=== PATIENT | female | born 1965 | race Caucasian/White ===

== ENCOUNTER 2022-11-14 18:45 | Observation (INO) ==
--- NOTE | 2022-11-14 19:14 | ED.PDOC ---
General ED Provider: Dr. ADAN RONDON Chief Complaint: Shortness of Air Stated Complaint: im tying to get some air and my chst feels funny Time Seen by Provider: 11/14/22 19:08 Mode of Arrival: Walk-In Information Source: Patient Exam Limitations: No limitations Primary Care Provider: FARHANA SANDOVAL MD Nursing and Triage Documentation Reviewed and Agree: Yes Does patient meet sepsis criteria?: No System Inflammatory Response Syndrome: Not Applicable Sepsis Protocol: For patient's 13 years and over: Temp is 96.8 and below OR 101 and greater Pulse >90 BPM Resp >20/minute Acutely Altered Mental Status Are patient's symptoms suggestive of a new infection, such as: -Pneumonia -Skin, Soft Tissue -Endocarditis -UTI -Bone, Joint Infection -Implantable Device -Acute Abdominal Infection -Wound Infection -Meningitis -Blood Stream Catheter Infection -Unknown Cardiovascular Complaint Exam Chest Pain Complaint/Exam Onset: Gradual Duration: 3 daysa Symptoms Are: Still present Timing: Intermittent Initial Severity: Mild Current Severity: Mild Location: Reports Discrete Pain Radiates: Reports Back Character: Reports Dull and Aching Aggravating: Reports None Alleviating: Reports Spontaneous resolution Associated Signs and Symptoms: Reports Short of air Related History: Reports Current ARBs AMI/ACS Risk Factors: Reports Hypertension Prior Care for this Complaint: No Recent Stress Test: No Recent Echo/LV Function: No JVD Present: No Subcutaneous Emphysema Present: No Diminshed Breath Sounds: No Reproducible Chest Wall Pain: No Bilateral Pulses Present: Yes Unequal Pulses Noted: No If Risk Factors for AMI/ACS Consider: EKG and Cardiac Enzymes Differential Diagnoses: Acute PA, ACS and Pulmonary Embolism Quality Indicator For Non-Traumatic Chest Pain/Syncope: EKG Performed Review of Systems Review Of Systems Constitutional: Reports No symptoms Eyes: Reports No symptoms Ears, Nose, Mouth, Throat: Reports No symptoms Respiratory: Reports Short of air Cardiac: Reports Chest pain GI: Reports No symptoms : Reports No symptoms Musculoskeletal: Reports No symptoms Skin: Reports No symptoms Neurological: Reports No symptoms Endocrine: Reports No symptoms Hematologic/Lymphatic: Reports No symptoms All Other Systems: Reviewed and Negative Physical Exam Physical Exam Appearance: Reports Well-appearing Ill-appearing: None Pain Distress: Mild Eyes: Reports JAIRO, EOMI and Conjunctiva clear ENT: Reports Ears normal, Nose normal and Oropharynx normal Neck: Supple Respiratory: Reports Airway patent, Breath sounds clear, Breath sounds equal and Breath sounds diminished Cardiovascular: Reports RRR, Pulses normal, No rub and No murmur GI/: Reports Soft, Nontender, No masses and Bowel sounds normal Musculoskeletal: Reports Normal strength, ROM intact and No edema Skin: Reports Warm, Dry and Normal color Neurological: Reports Sensation intact, Motor intact, Reflexes intact, Cranial nerves intact, Alert and Oriented Psychiatric: Reports Affect appropriate and Mood appropriate Interpretation Radiology Interpretation Radiology Interpretation By: Radiologist Radiology Results: Positive Exam Interpreted: CT Scan Xray Comments: cardiolomegaly EKG Interpretation Time of EKG #1: 21:56 Rate: Normal Rhythm: Sinus Ectopy: None [place]: NL ST Segment: Normal Interpretation: nsr Physician Notification Case Discussed Physician Notified: dr sandoval Time of Notification: 21:57 Critical Care Note Critical Care Note Total Critical Care Time (mins): 0 Course Course Hematology/Chemistry: 11/14/22 19:19 11/14/22 19:19 Orders, Labs, Meds: Lab Review 11/14/22 11/14/22 11/14/22 19:00 19:00 19:19 WBC 7.35 RBC 4.43 Hgb 12.0 Hct 37.3 MCV 84.2 MCH 27.1 MCHC 32.2 RDW Coeff of Chente 15.7 H Plt Count 280 Immature Gran % (Auto) 0.3 Neut % (Auto) 66.8 Lymph % (Auto) 24.6 [place] % (Auto) 6.0 Eos % (Auto) 1.8 Baso % (Auto) 0.5 Neut # (Auto) 4.9 Lymph # (Auto) 1.8 [place] # (Auto) 0.4 Eos # (Auto) 0.1 Baso # (Auto) 0.0 Immature Gran # (Auto) 0.0 Sodium Potassium Chloride Carbon Dioxide Anion Gap BUN Creatinine Estimated GFR (MDRD) BUN/Creatinine Ratio Glucose Calcium Total Bilirubin AST ALT Alkaline Phosphatase Troponin I NT-Pro-B Natriuret Pep Total Protein Albumin Globulin Albumin/Globulin Ratio Lipase Influ A Molecular Assay Negative by naat Influ B Molecular Assay Negative by naat SARS CoV-2 RNA Rapid TRAE Negative 11/14/22 19:19 WBC RBC Hgb Hct MCV MCH MCHC RDW Coeff of Chente Plt Count Immature Gran % (Auto) Neut % (Auto) Lymph % (Auto) [place] % (Auto) Eos % (Auto) Baso % (Auto) Neut # (Auto) Lymph # (Auto) [place] # (Auto) Eos # (Auto) Baso # (Auto) Immature Gran # (Auto) Sodium 141.5 Potassium 3.65 Chloride 105.5 Carbon Dioxide 29.7 Anion Gap 9.95 BUN 13.0 Creatinine 0.66 Estimated GFR (MDRD) 93.00 BUN/Creatinine Ratio 19.69 Glucose 100.4 Calcium 9.38 Total Bilirubin 0.41 AST 28.3 ALT 26.6 Alkaline Phosphatase 93.1 Troponin I < 0.012 NT-Pro-B Natriuret Pep 71.100 Total Protein 7.91 Albumin 4.56 Globulin 3.35 Albumin/Globulin Ratio 1.36 Lipase 40.0 Influ A Molecular Assay Influ B Molecular Assay SARS CoV-2 RNA Rapid TRAE Orders Category Date Time Status EKG-(ED ONLY) Stat CARDIO 11/14/22 19:05 Completed EKG-(ED ONLY) Stat CARDIO 11/14/22 21:43 Ordered NPO REMINDER: IMAGING ONCE CARE 11/14/22 19:06 Completed ED EMBALMER/FUNERAL DIRECTOR APPLIED .ONCE EMERGENCY 11/14/22 19:05 Active ED IV/MEDIPORT/POWERPORT .ONCE EMERGENCY 11/14/22 19:05 Active CBC W/ AUTO DIFF Stat LAB 11/14/22 19:19 Completed COMPREHENSIVE METABOLIC PANEL Stat LAB 11/14/22 19:19 Completed FLU A & B MOLECULAR [FLU A/B MOLECULAR] Stat LAB 11/14/22 19:00 Completed LIPASE Stat LAB 11/14/22 19:19 Completed NT-PROBNP Stat LAB 11/14/22 19:19 Completed SARS COV-2 RNA RAPID TRAE Stat LAB 11/14/22 19:00 Completed TROPONIN I Stat LAB 11/14/22 19:19 Completed 0.9 % Sodium Chloride [Saline Flush] MEDS 11/14/22 19:05 Active 1 syr IVF PRN PRN CT CHEST PE PROTOCOL Stat RADS 11/14/22 19:05 Completed Medications Generic Name Dose Route Start Last Admin Trade Name Freq PRN Reason Stop Dose Admin Sodium Chloride 1 syr 11/14/22 19:05 0.9% Sodium Chloride 10 Ml Disp.Syrin IVF PRN PRN To flush IV Vital Signs: Temp Pulse Resp BP Pulse Ox 11/14/22 18:46 97.8 F 88 18 162/98 H 98 SANTINO Risk Score SANTINO Risk Score: Risk Score Odds of by 30D 0 0.1 (0.1-0.2) 1 0.3 (0.2-0.3) 2 0.4 (0.3-0.5) 3 0.7 (0.6-0.9) 4 1.2 (1.0-1.5) 5 2.2 (1.9-2.6) 6 3.0 (2.5-3.6) 7 4.8 (3.8-6.1) Discharge Plan Discharge Patient Disposition: ADMITTED INPATIENT Discharge Problem: Chest pain Prescriptions: No Action alprazolam 0.25 mg tablet 0.25 mg PO BEDTIME pantoprazole 40 mg tablet,delayed release (DR/EC) 40 mg PO DAILY fluticasone propionate 50 mcg/actuation spray,suspension 1 spray INTRANASAL DAILY rosuvastatin 10 mg tablet 10 mg PO BEDTIME nebivolol 10 mg tablet 10 mg PO DAILY ED Provider: ADAN FAIRBANKS Condition: Good Physician Progress Note: []
[2022-11-14 19:29] LABS: BASOPHILS % (AUTO) 0.5 % (0.0-3.0); EOSINOPHILS # (AUTO) 0.1 K/ul (0.0-0.7); EOSINOPHILS % (AUTO) 1.8 % (0.0-7.0); HEMATOCRIT 37.3 % (37.0-47.0); IMMATURE GRANULOCYTE % (AUTO) 0.3 % (0.0-5.0); LYMPHOCYTES # (AUTO) 1.8 K/uL (0.60-3.4); LYMPHOCYTES % (AUTO) 24.6 (10.0-50.0); MEAN CORPUSCULAR HEMOGLOBIN 27.1 pg (27.0-31.0); MEAN CORPUSCULAR HGB CONC 32.2 (31.8-35.4); MEAN CORPUSCULAR VOLUME 84.2 fl (81.0-99.0); MONOCYTES # (AUTO) 0.4 K/uL (0.4-2.0); NEUTROPHILS # (AUTO) 4.9 K/ul (2.0-6.9); NEUTROPHILS % (AUTO) 66.8 % (42.2-75.2); PLATELET COUNT 280 10^3/uL (140-440); RDW COEFFICIENT OF VARIATION 15.7 % (11.6-14.8); RED BLOOD COUNT 4.43 10^6/ul (4.20-5.40); WHITE BLOOD COUNT 7.35 K/ul (4.6-10.2)
[2022-11-14 19:36] LABS: ALANINE AMINOTRANSFERASE 26.6 U/L (0-35); ALBUMIN 4.56 g/dL (3.5-5.0); ALKALINE PHOSPHATASE 93.1 U/L (38-126); ASPARTATE AMINO TRANSFERASE 28.3 U/L (14-36); BILIRUBIN,TOTAL 0.41 mg/dL (0.2-1.3); CALCIUM 9.38 mg/dL (8.4-10.2); CARBON DIOXIDE 29.7 mmol/L (22-30.0); CHLORIDE 105.5 mmol/L (98-107); CREATININE 0.66 mg/dL (0.60-1.30); GLUCOSE 100.4 mg/dL (74-106); POTASSIUM 3.65 mmol/L (3.5-5.1); SODIUM 141.5 mmol/L (134.5-145); TOTAL PROTEIN 7.91 g/dL (6.3-8.2)
[2022-11-14 19:40] LABS: MOLECULAR FLU A NEGATIVE BY NAAT (NEGATIVE); MOLECULAR FLU B NEGATIVE BY NAAT (NEGATIVE)
[2022-11-14 19:41] LABS: SARS COV-2 RNA RAPID NAAT NEGATIVE (NEGATIVE)
[2022-11-14 20:09] LABS: TROPONIN I < 0.012 ng/ml (0.0000-0.120)
--- NOTE | 2022-11-14 21:31 | CT ---
EXAM: Chest CTA with contrast 11/14/2022 HISTORY: Chest pain. Dyspnea. TECHNIQUE: Axial CT images were obtained through the chest with the administration of intravenous con trast in accordance with the PE protocol. Coronal, bilateral oblique and sagittal reformatted images were also submitted for interpretation. 3D/MIP images of the pulmonary vasculature were also genera tianna. COMPARISON: None. FINDINGS: The pulmonary arteries are normal in size. There are no filling defects in the pulmonary arteries to suggest pulmonary embolism. There is no evidence of right heart strain. Lower neck is within normal limits. Major airways are patent. No pneumothorax or pleural fluid. De pendent ground-glass opacities may atelectasis and/or pneumonitis. Moderate cardiomegaly. The thoracic aorta is normal in size. No lymphadenopathy. The visualized portions of the upper abdomen demonstrate possible hepatic steatosis. Correlation wit h LFTs recommended. Soft tissue structures are unremarkable. The bones are intact. IMPRESSION: - No acute pulmonary thromboembolism. - Moderate cardiomegaly. No pericardial effusion. - Dependent ground-glass opacities may atelectasis and/or pneumonitis. - Possible hepatic steatosis. Correlation with LFTs recommended. All CT scans are performed using dose optimization techniques as appropriate to the performed exam an d include at least one of the following: Automated exposure control, adjustment of the mA and/or kV according t o size, and the use of iterative reconstruction technique.
[2022-11-14] MEDS ORDERED: NITROSTAT SL PRN (21:58)
[2022-11-14] MEDS ORDERED: ATROPINE SULFATE PFS IVP PRN (21:58)
[2022-11-14] MEDS ORDERED: TYLENOL PO PRN (21:58)
[2022-11-14 22:16] LABS: BASOPHILS % (AUTO) 0.6 % (0.0-3.0); EOSINOPHILS # (AUTO) 0.1 K/ul (0.0-0.7); HEMATOCRIT 35.9 % (37.0-47.0); HEMOGLOBIN 11.8 g/dl (12.0-16.0); IMMATURE GRANULOCYTE % (AUTO) 0.3 % (0.0-5.0); LYMPHOCYTES # (AUTO) 1.8 K/uL (0.60-3.4); LYMPHOCYTES % (AUTO) 26.5 (10.0-50.0); MEAN CORPUSCULAR HEMOGLOBIN 27.4 pg (27.0-31.0); MEAN CORPUSCULAR HGB CONC 32.9 (31.8-35.4); MEAN CORPUSCULAR VOLUME 83.5 fl (81.0-99.0); MONOCYTES # (AUTO) 0.3 K/uL (0.4-2.0); MONOCYTES % (AUTO) 4.7 (0-10); NEUTROPHILS # (AUTO) 4.5 K/ul (2.0-6.9); NEUTROPHILS % (AUTO) 66.9 % (42.2-75.2); PLATELET COUNT 261 10^3/uL (140-440); RDW COEFFICIENT OF VARIATION 15.7 % (11.6-14.8); WHITE BLOOD COUNT 6.79 K/ul (4.6-10.2)
[2022-11-14 22:28] LABS: ALANINE AMINOTRANSFERASE 24.7 U/L (0-35); ALBUMIN 4.14 g/dL (3.5-5.0); ALKALINE PHOSPHATASE 88.4 U/L (38-126); ASPARTATE AMINO TRANSFERASE 25.4 U/L (14-36); BILIRUBIN,TOTAL 0.42 mg/dL (0.2-1.3); BLOOD UREA NITROGEN 11.9 mg/dL (7-17); CALCIUM 9.37 mg/dL (8.4-10.2); CARBON DIOXIDE 28.6 mmol/L (22-30.0); CHLORIDE 107.8 mmol/L (98-107); CREATINE KINASE 45.6 U/L (30-135); CREATININE 0.62 mg/dL (0.60-1.30); GLUCOSE 94.2 mg/dL (74-106); POTASSIUM 3.81 mmol/L (3.5-5.1); SODIUM 142.5 mmol/L (134.5-145); TOTAL PROTEIN 7.24 g/dL (6.3-8.2)
[2022-11-14 22:41] LABS: TROPONIN I < 0.012 ng/ml (0.0000-0.120)
[2022-11-14] MEDS ORDERED: LOVENOX SUBCUT STA (22:56)
[2022-11-14] MEDS ORDERED: ASPIRIN CHEWABLE PO STA (22:57)
[2022-11-14] MEDS: CRESTOR PO SCH (23:49)
[2022-11-15] MEDS: BYSTOLIC PO SCH ×2 (00:21→09:13)
[2022-11-15] MEDS: XANAX PO SCH ×2 (00:21→20:34)
[2022-11-15] MEDS: PROTONIX PO SCH ×3 (00:22→17:14)
[2022-11-15 06:46] LABS: CREATINE KINASE 38.5 U/L (30-135)
[2022-11-15 07:02] LABS: TROPONIN I < 0.012 ng/ml (0.0000-0.120)
[2022-11-15 08:47] LABS: CHOLESTEROL 124.1 mg/dL (0-200); HDL CHOLESTEROL 34.3 mg/dL (35-80); TRIGLYCERIDES 151.6 mg/dL (0-150)
[2022-11-15] MEDS ORDERED: BYSTOLIC PO SCH ×2 (09:00→21:00)
[2022-11-15] MEDS ORDERED: PROTONIX PO SCH ×2 (09:00→21:00)
[2022-11-15] MEDS ORDERED: ASPIRIN CHEWABLE PO SCH (09:00)
[2022-11-15] MEDS: FLONASE NAS SCH (09:14)
[2022-11-15 09:18] LABS: THYROID STIMULATING HORMONE 7.41 uIU/L (0.465-4.68)
[2022-11-15] MEDS: ZITHROMAX PO SCH (09:23)
[2022-11-15] MEDS: ROCEPHIN 1 GM/50 ML D5W 1 GM/50 ML BAG IV SCH (09:24)
[2022-11-15 09:53] LABS: BILIRUBIN,URINE Negative (NEGATIVE); CLARITY,URINE Clear (CLEAR); COLOR,URINE Yellow (YELLOW); GLUCOSE, URINE (UA) Negative (NEGATIVE); KETONES,URINE Negative (NEGATIVE); LEUKOCYTE ESTERASE ,URINE Negative (NEGATIVE); NITRITE,URINE Negative (NEGATIVE); PH,URINE 7.5 (5-9); PROTEIN,URINE Negative (NEGATIVE); URINE, BLOOD 2+ (NEGATIVE); UROBILINOGEN,URINE 0.2 (0.2)
[2022-11-15 09:59] LABS: SQUAMOUS EPITHELIAL CELL,UR 0-2 (0-5)
--- NOTE | 2022-11-15 10:05 | PCM.PROG ---
Attending Provider: ATTENDING PROVIDER: Dr. FARHANA NOEL MD This patient is seen with Sherrell Hussein, Nurse Practitioner. DATE OF SERVICE: 11/15/22 SUBJECTIVE: This 57 year old /WHITE F was hospitalized 11/14/22. The patient is resting comfortably. The patient reports she has been having intermittent chest pain for two days associated with shortness of breath with activity and at rest. History of dyslipidemia. The patient is overweight with positive family history of CAD. She reports pain has radiated through to back at times and has made her nauseated. No sweating. She denies any cough. CT of chest reported she had bilateral ground glass opacities. She has been afebrile. REVIEW OF SYSTEMS: CONSTITUTIONAL: Fatigue. No night sweats. No malaise, lethargy. No fever or chills. Activity intolerance. HEENT: Eyes: No visual changes. No eye pain. No eye discharge. ENT: No runny nose. No epistaxis. No sinus pain. No odynophagia. No congestion. RESPIRATORY: No cough, no congestion. No hemoptysis. Shortness of breath. CARDIOVASCULAR: Chest pain. No angina symptoms. No CHF symptoms. No palpitations. No orthopnea.. GASTROINTESTINAL: No abdominal pain. No nausea or vomiting. No diarrhea or constipation. No hematemesis. No hematochezia. GENITOURINARY: No urgency. No frequency. No dysuria. No hematuria. No obstructive symptoms. No discharge. No pain. No significant abnormal bleeding. MUSCULOSKELETAL: No musculoskeletal pain; no joint swelling. NEUROLOGICAL: Awake, alert, oriented to time, place and person. No headache. No neck pain. No syncope. No seizures. No dizziness. PSYCHIATRIC: Not anxious. No depression. No suicidal thoughts. No homicidal tho ughts. SKIN: No rash. No lesions. No wounds. ENDOCRINE: No unexplained weight loss. No weight gain. HEMATOLOGIC/LYMPHATIC: No anemia. No purpura. No petechiae. No prolonged or excessive bleeding. No palpable lymph nodes. PHYSICAL EXAMINATION: GENERAL: The patient is awake, alert and oriented, lying/sitting in bed in no distress. VITAL SIGNS: Temperature 97.7 F, Pulse 60, Respiratory Rate 16, BP 133/76, Pulse Ox 97% HEENT: Head normocephalic, atraumatic. Eyes: Extraocular muscles are intact. Pupils are equal, round and reactive to light and accommodation. Ears: No lesions. Nose appeared normal. Throat: No exudate or erythema. NECK: Supple. No JVD, no carotid bruit. No lymphadenopathy or thyromegaly. LUNGS: Diminished breath sounds. Rales at the bases. Percussion note normal. Chest symmetrical. HEART: S1, S2, no S3. No murmurs. No cyanosis or clubbing. No ascites. Pulses: Dorsalis pedis and posterior tibial pulses +1 to +2 both sides. ABDOMEN: Soft. Non-tender. Bowel sounds active. No CVA tenderness. No mass felt. EXTREMITIES: No edema. Full range of motion of all extremities, equal. NEUROLOGIC: No focal deficit. Cranial nerves II through XII are grossly intact. No headache. No double vision. SKIN: Not dry. Intact. Turgor-normal. LYMPHATIC: No palpable lymph nodes/no lymphedema. MUSCULOSKELETAL: Normal joints with no swelling. Muscle tone is normal. LAB REVIEW: 11/14/22 22:00 11/14/22 22:00 11/15/22 06:15: Total Creatine Kinase 38.5, Troponin I < 0.012 11/14/22 22:00: Sodium 142.5, Potassium 3.81, Chloride 107.8 H, Carbon Dioxide 28.6, Anion Gap 9.91, BUN 11.9, Creatinine 0.62, Estimated GFR (MDRD) 100.00, BUN/Creatinine Ratio 19.19, Glucose 94.2, Calcium 9.37, Total Bilirubin 0.42, AST 25.4, ALT 24.7, Alkaline Phosphatase 88.4, Total Creatine Kinase 45.6, Troponin I < 0.012, Total Protein 7.24, Albumin 4.14, Globulin 3.10, Albumin/Globulin Ratio 1.33 11/14/22 22:00: WBC 6.79, RBC 4.30, Hgb 11.8 L, Hct 35.9 L, MCV 83.5, MCH 27.4, MCHC 32.9, RDW Coeff of Chente 15.7 H, Plt Count 261, Immature Gran % (Auto) 0.3, Neut % (Auto) 66.9, Lymph % (Auto) 26.5, [place] % (Auto) 4.7, Eos % (Auto) 1.0, Baso % (Auto) 0.6, Neut # (Auto) 4.5, Lymph # (Auto) 1.8, [place] # (Auto) 0.3 L, Eos # (Auto) 0.1, Baso # (Auto) 0.0, Immature Gran # (Auto) 0.0 11/14/22 19:19: Sodium 141.5, Potassium 3.65, Chloride 105.5, Carbon Dioxide 29.7, Anion Gap 9.95, BUN 13.0, Creatinine 0.66, Estimated GFR (MDRD) 93.00, BUN/Creatinine Ratio 19.69, Glucose 100.4, Calcium 9.38, Total Bilirubin 0.41, AST 28.3, ALT 26.6, Alkaline Phosphatase 93.1, Troponin I < 0.012, NT-Pro-B Natriuret Pep 71.100, Total Protein 7.91, Albumin 4.56, Globulin 3.35, Albumin/Globulin Ratio 1.36, Lipase 40.0 11/14/22 19:19: WBC 7.35, RBC 4.43, Hgb 12.0, Hct 37.3, MCV 84.2, MCH 27.1, MCHC 32.2, RDW Coeff of Chente 15.7 H, Plt Count 280, Immature Gran % (Auto) 0.3, Neut % (Auto) 66.8, Lymph % (Auto) 24.6, [place] % (Auto) 6.0, Eos % (Auto) 1.8, Baso % (Auto) 0.5, Neut # (Auto) 4.9, Lymph # (Auto) 1.8, [place] # (Auto) 0.4, Eos # (Auto) 0.1, Baso # (Auto) 0.0, Immature Gran # (Auto) 0.0 11/14/22 19:00: Influ A Molecular Assay Negative by naat, Influ B Molecular Assay Negative by naat 11/14/22 19:00: SARS CoV-2 RNA Rapid TRAE Negative ASSESSMENT: Please see below. 1. Chest pain with bilateral acute pneumonitis. 2. Shortness of breath. 3. Dyslipidemia. 4. Family history of cardiovascular disease. 5. Obesity with BMI 30. 6. Hypertension. PLAN: 1. 2D echocardiogram. 2. Walking stress. 3. Lipids. 4. T4, TSH if not done already. 5. Walking stress. 6. Start Rocephin 1gm IV daily. 7. UA 8. Zithromax 500 mg p.o. daily. 9. RSV if not done. Plan and coordination of the patient's care discussed in the presence of Pulpit Operator and nurse. CONDITION: Stable SCRIBED BY: SAVAGE MYLES Ophthalmology Assistant scribed while in presence of service performed by Dr. Noel/Sherrell Hussein APRN on 11/15/22 ([id number])
[2022-11-15 10:11] LABS: RSV MOLECULAR NEGATIVE BY NAAT (NEGATIVE)
[2022-11-15] MEDS: CRESTOR PO SCH (20:34)
[2022-11-15] MEDS ORDERED: XANAX PO SCH (21:00)
[2022-11-16 05:27] LABS: BASOPHILS # (AUTO) 0.1 K/uL (0-0.2); BASOPHILS % (AUTO) 0.8 % (0.0-3.0); EOSINOPHILS # (AUTO) 0.2 K/ul (0.0-0.7); EOSINOPHILS % (AUTO) 3.7 % (0.0-7.0); HEMATOCRIT 35.3 % (37.0-47.0); HEMOGLOBIN 11.4 g/dl (12.0-16.0); IMMATURE GRANULOCYTE % (AUTO) 0.2 % (0.0-5.0); LYMPHOCYTES # (AUTO) 2.1 K/uL (0.60-3.4); LYMPHOCYTES % (AUTO) 34.8 (10.0-50.0); MEAN CORPUSCULAR HEMOGLOBIN 27.1 pg (27.0-31.0); MEAN CORPUSCULAR HGB CONC 32.3 (31.8-35.4); MONOCYTES # (AUTO) 0.5 K/uL (0.4-2.0); NEUTROPHILS # (AUTO) 3.1 K/ul (2.0-6.9); NEUTROPHILS % (AUTO) 52.5 % (42.2-75.2); PLATELET COUNT 245 10^3/uL (140-440); RDW COEFFICIENT OF VARIATION 15.7 % (11.6-14.8); WHITE BLOOD COUNT 5.98 K/ul (4.6-10.2)
[2022-11-16 05:40] LABS: ALANINE AMINOTRANSFERASE 22.6 U/L (0-35); ALBUMIN 4.02 g/dL (3.5-5.0); ALKALINE PHOSPHATASE 73.4 U/L (38-126); BILIRUBIN,TOTAL 0.7 mg/dL (0.2-1.3); BLOOD UREA NITROGEN 15.3 mg/dL (7-17); CALCIUM 8.85 mg/dL (8.4-10.2); CHLORIDE 105.5 mmol/L (98-107); CREATININE 0.7 mg/dL (0.60-1.30); GLUCOSE 91.8 mg/dL (74-106); POTASSIUM 3.77 mmol/L (3.5-5.1); SODIUM 140.4 mmol/L (134.5-145); TOTAL PROTEIN 6.91 g/dL (6.3-8.2)
[2022-11-16] MEDS ORDERED: SYNTHROID PO SCH (06:30)
[2022-11-16] MEDS ORDERED: ASPIRIN CHEWABLE PO SCH (08:30)
--- NOTE | 2022-11-16 10:14 | PCM.PROG ---
Attending Provider: ATTENDING PROVIDER: Dr. FARHANA NOEL MD This patient is seen with Sherrell Hussein, Nurse Practitioner. DATE OF SERVICE: 11/16/22 SUBJECTIVE: This 57 year old /WHITE F was hospitalized 11/14/22. The patient is resting comfortably. Chest pain intermittent, epigastric pain. No tenderness. TSH elevated, REVIEW OF SYSTEMS: CONSTITUTIONAL: No night sweats. No fatigue, malaise, lethargy. No fever or chills. HEENT: Eyes: No visual changes. No eye pain. No eye discharge. ENT: No runny nose. No epistaxis. No sinus pain. No odynophagia. No congestion. RESPIRATORY: No cough, no congestion. No hemoptysis. No shortness of breath. CARDIOVASCULAR: Intermittent atypical chest pain. No angina symptoms. No CHF symptoms. No palpitations. No orthopnea.. GASTROINTESTINAL: Epigastric pain. No nausea or vomiting. No diarrhea or constipation. No hematemesis. No hematochezia. GENITOURINARY: No urgency. No frequency. No dysuria. No hematuria. No obstructive symptoms. No discharge. No pain. No significant abnormal bleeding. MUSCULOSKELETAL: No musculoskeletal pain; no joint swelling. NEUROLOGICAL: Awake, alert, oriented to time, place and person. No headache. No neck pain. No syncope. No seizures. No dizziness. PSYCHIATRIC: Not anxious. No depression. No suicidal thoughts. No homicidal thoughts. SKIN: No rash. No lesions. No wounds. ENDOCRINE: No unexplained weight loss. No weight gain. HEMATOLOGIC/LYMPHATIC: No anemia. No purpura. No petechiae. No prolonged or excessive bleeding. No palpable lymph nodes. PHYSICAL EXAMINATION: GENERAL: The patient is awake, alert and oriented, lying/sitting in bed in no distress. VITAL SIGNS: Temperature 97.0 F, Pulse 64, Respiratory Rate 18, BP 126/81, Pulse Ox 94% HEENT: Head normocephalic, atraumatic. Eyes: Extraocular muscles are intact. Pupils are equal, round and reactive to light and accommodation. Ears: No lesions. Nose appeared normal. Throat: No exudate or erythema. NECK: Supple. No JVD, no carotid bruit. No lymphadenopathy or thyromegaly. LUNGS: Clear to auscultation. Percussion note normal. Chest symmetrical. HEART: S1, S2, no S3. No murmurs. No cyanosis or clubbing. No ascites. Pulses: Dorsalis pedis and posterior tibial pulses +1 to +2 both sides. ABDOMEN: Soft. Non-tender. Bowel sounds active. No CVA tenderness. No mass felt. EXTREMITIES: No edema. Full range of motion of all extremities, equal. NEUROLOGIC: No focal deficit. Cranial nerves II through XII are grossly intact. No headache. No double vision. SKIN: Not dry. Intact. Turgor-normal. LYMPHATIC: No palpable lymph nodes/no lymphedema. MUSCULOSKELETAL: Normal joints with no swelling. Muscle tone is normal. LAB REVIEW: 11/16/22 05:00 11/16/22 05:00 11/16/22 05:00: Sodium 140.4, Potassium 3.77, Chloride 105.5, Carbon Dioxide 29.0, Anion Gap 9.67, BUN 15.3, Creatinine 0.70, Estimated GFR (MDRD) 87.00, BUN/Creatinine Ratio 21.85, Glucose 91.8, Calcium 8.85, Total Bilirubin 0.70, AST 23.0, ALT 22.6, Alkaline Phosphatase 73.4, Total Protein 6.91, Albumin 4.02, Globulin 2.89, Albumin/Globulin Ratio 1.39 11/16/22 05:00: WBC 5.98, RBC 4.20, Hgb 11.4 L, Hct 35.3 L, MCV 84.0, MCH 27.1, MCHC 32.3, RDW Coeff of Chente 15.7 H, Plt Count 245, Immature Gran % (Auto) 0.2, Neut % (Auto) 52.5, Lymph % (Auto) 34.8, [place] % (Auto) 8.0, Eos % (Auto) 3.7, Baso % (Auto) 0.8, Neut # (Auto) 3.1, Lymph # (Auto) 2.1, [place] # (Auto) 0.5, Eos # (Auto) 0.2, Baso # (Auto) 0.1, Immature Gran # (Auto) 0.0 11/15/22 09:38: Urine Color Yellow, Urine Clarity Clear, Urine pH 7.5, Ur Specific Elizabeth 1.020, Urine Protein Negative, Urine Glucose (UA) Negative, Urine Ketones Negative, Urine Blood 2+ H, Urine Nitrite Negative, Urine Bilirubin Negative, Urine Urobilinogen 0.2, Ur Leukocyte Esterase Negative, Urine Microscopic RBC 10-20, Ur Squamous Epith Cells 0-2 11/15/22 09:30: RSV Antigen Negative by naat 11/15/22 06:15: Free T4 0.92 11/15/22 06:15: Triglycerides 151.6 H, Cholesterol 124.1, LDL Cholesterol, Calc 59, VLDL Cholesterol 30, HDL Cholesterol 34.3 L, Cholesterol/HDL Ratio 3.6 L, TSH 7.410 H ASSESSMENT: Please see below. 1. Atypical chest pain 2. Epigastric pain 3. Dizziness 4. Dyslipidemia 5. Hypothyroidism PLAN: 1. Bilateral carotid scan. 2. Right upper quadrant ultrasound. 3. The patient has partial right bundle branch block and will need nuclear exam on further exam of stress test. 4. Synthroid 50 mcg p.o. daily. Plan and coordination of the patient's care discussed in the presence of Emr Specialist and nurse. CONDITION: Stable SCRIBED BY: SAVAGE MYLES Outpatient Psychiatrist scribed while in presence of service performed by Dr. Noel/Sherrell Hussein APRN on 11/16/22 ([id number])
--- NOTE | 2022-11-16 10:28 | US ---
EXAMINATION: BILATERAL CAROTID ULTRASOUND HISTORY: Dizziness. COMPARISON: None available. TECHNIQUE: Sonographic evaluation of the bilateral carotid arteries was performed with toledo scale and color and spectral Doppler imaging. Ultrasound images were acquired and stored in a permanent Mark[employer] ve. FINDINGS: Plaque distribution: Mild plaque bilaterally in the carotid bifurcations. Arterial velocities measured in centimeters per second: Right common carotid artery peak systolic velocity: 68 Right internal carotid artery peak systolic velocity: 112 Right internal carotid artery end diastolic velocity: 49 Right ICA/CCA ratio: 1.6 Right external carotid artery peak systolic velocity: 74 Left common carotid artery peak systolic velocity: 63 Left internal carotid artery peak systolic velocity: 69 Left internal carotid artery end diastolic velocity: 29 Left ICA/CCA ratio: 1.1 Left external carotid artery peak systolic velocity: 76 Vertebrals: - Right: Antegrade flow with normal waveform. - Left: Antegrade flow with normal waveform. Society of Radiologists in Ultrasound (SRU) consensus statement (Radiology 2003; 229:340-346. DOI 10 .[id number].[id number]) was used to estimate internal carotid artery stenosis. IMPRESSION: 1. Less than 50% stenosis in the right internal carotid artery. 2. Less than 50% stenosis in the left internal carotid artery. 3. Right Vertebral Artery: Antegrade. 4. Left Vertebral Artery: Antegrade.
--- NOTE | 2022-11-16 10:30 | US ---
EXAM: ULTRASOUND OF THE RIGHT UPPER QUADRANT (LIMITED ABDOMEN) HISTORY: Right upper quadrant abdominal pain. TECHNIQUE: Sonography of the right upper quadrant of the abdomen was performed. Color Doppler imagin g and spectral Doppler imaging of the portal vein was also performed. Images were obtained and store d in a permanent archive. COMPARISON: None. FINDINGS: Pancreas: Normal sonographic appearance of the head and body. Tail is partially obscured. Liver: Normal size and diffusely increased echogenicity. Normal surface contour. No focal hepatic l esion. Main portal vein: Normal hepatopetal flow. Gallbladder: Sludge in the gallbladder. No cholelithiasis. No gallbladder wall thickening. Negative sonographic Calhoun's sign. Common bile duct measures 3.6 mm. Right Kidney: Measures: 11.3 x 4.9 x 5.4 cm. No mass, calculus, or hydronephrosis. Aorta: Visualized portion without aneurysmal dilatation. IVC: Patent on color doppler. No abnormality on limited jimenez scale image. Other: No ascites. IMPRESSION: 1. Sludge in the gallbladder. No gallstones or evidence of cholecystitis. 2. Fatty metamorphosis of the liver. 3. Otherwise normal right upper quadrant abdomen ultrasound.
[2022-11-16] MEDS: ROCEPHIN 1 GM/50 ML D5W 1 GM/50 ML BAG IV SCH (10:38)
[2022-11-16] MEDS: FLONASE NAS SCH (10:46)
[2022-11-16] MEDS: PROTONIX PO SCH (11:43)
[2022-11-16] MEDS: ZITHROMAX PO SCH (11:44)
[2022-11-16 14:54] VITALS: BP 206/110; TEMP 98.2
--- NOTE | 2022-11-17 14:08 | PN ---
DATE OF SERVICE: 11/15/22 SUBJECTIVE: Patient was seen and examined with the nurse practitioner. Patient's chest pain is fairly atypical, it is mostly at rest, nonexertional. Had a funny type of feeling according to her. Upon further questioning, the patient has symptoms of reflux disease with some mild discomfort after she eats. REVIEW OF SYSTEMS: CONSTITUTIONAL: No night sweats. No fatigue, malaise, lethargy. No fever or chills. HEENT: Eyes: No visual changes. No eye pain. No eye discharge. ENT: No runny nose. No epistaxis. No sinus pain. No sore throat. No odynophagia. No congestion. RESPIRATORY: No cough, no congestion. No hemoptysis. No shortness of breath. CARDIOVASCULAR: No angina symptoms. No CHF symptoms. No atypical chest pain for CAD. No palpitations. No PND. No orthopnea. GASTROINTESTINAL: No abdominal pain. No nausea or vomiting. No diarrhea or constipation. No hematemesis. No hematochezia. GENITOURINARY: No urgency. No frequency. No dysuria. No hematuria. No obstructive symptoms. No discharge. No pain. No significant abnormal bleeding. MUSCULOSKELETAL: No musculoskeletal pain; no joint swelling. NEUROLOGICAL: No headache. No neck pain. No syncope. No seizures. No dizziness. PSYCHIATRIC: Not anxious. No depression. No suicidal thoughts. No homicidal thoughts. SKIN: No rash. No lesions. No wounds. ENDOCRINE: No unexplained weight loss. No weight gain. HEMATOLOGIC/LYMPHATIC: No anemia. No purpura. No petechiae. No prolonged or excessive bleeding. No palpable lymph nodes. PHYSICAL EXAMINATION: GENERAL: The patient is in no distress. HEENT: Head normocephalic, atraumatic. Eyes: Extraocular muscles are intact. Pupils are equal, round and reactive to light and accommodation. Ears: No lesions. Nose appeared normal. Throat: No exudate or erythema. NECK: Supple. No JVD, no carotid bruit. No lymphadenopathy or thyromegaly. LUNGS: Clear to auscultation. Percussion note normal. Chest symmetrical. HEART: S1, S2, no S3. No murmurs. No cyanosis or clubbing. No ascites. Pulses: Dorsalis pedis and posterior tibial pulses +2 bilaterally. ABDOMEN: Soft. Nontender. Bowel sounds active. No CVA tenderness. No mass felt. EXTREMITIES: No edema. Full range of motion of all extremities, equal. NEUROLOGIC: No focal deficit. Cranial nerves II through XII are grossly intact. No headache. No double vision. SKIN: Not dry. Intact. Turgor - normal. LYMPHATIC: No palpable lymph nodes/no lymphedema. MUSCULOSKELETAL: Normal joints with no swelling. Muscle tone is normal. LABS: EKG showed incomplete left bundle branch type of pattern and LVH type of deviation acute changes noted. Patient had an echo done which was totally normal with normal LV contractility. Stress test couldn't be interpreted because of patient's baseline abnormal EKG. During the stress test he reached a level of 7 because she reached the target heart rate. He did not have any chest pain or chest discomfort and no arrhythmias were noted. Response was appropriate. Oxygen saturation stayed more than 95%. Resting contractility was normal, post exercise contractility normal. ASSESSMENT: Symptoms seem to be noncardiac with normal cardiac markers and EKG's with no active changes. Work up negative for ischemia. PLAN: o carotid studies and also ultrasound of the gallbladder and add Protonix. Condition: Stable. Patient has multiple risk factors for coronary heart disease like strong family history, hypertension, dyslipidemia, obesity. Counseling for all the risk factors done and explained how to modify them. . TIME SPENT: More than 35 minutes. Plan and coordination of the patient's care discussed in the presence of nurse. LALI
--- NOTE | 2022-11-17 14:33 | DS ---
DATE OF SERVICE: 11/16/22 FINAL DIAGNOSIS: Chest pain, etiology noncardiac Strong family history of heart disease Hypertension Dyslipidemia Obesity Hypothyroidism GERD SUBJECTIVE: Patient was seen and examined with the nurse practitioner. Patient doesn't have any chest pain, no PND, no orthopnea. Reflux symptoms are present and carotid scan less than 50% . The patient is up and about with no symptoms of coronary insufficiency. Blood pressure is under control. Patient will be sent home on Protonix. Patient was noted to be hypothyroid 50 microgram Levothyroxine started. He is to continue hypertension medication and everything as before. LABS: Echocardiogram normal, LV contractility, normal LV size structures normal Stress test was ended because of patient's baseline abnormal EKG with ST wave changes and incomplete left bundle branch Patient did not have any chest pain during the stress test and reached max level of 7 Blood pressure response was appropriate No arrhythmias Oxygen saturation more than 97% with exercise Patient's echocardiogram done at rest, normal LV contractility, post exercise normal LV contractility Patient has been scheduled for stress test maybe for Monday FINAL DIAGNOSIS: Chest pain, noncardiac, could be esophageal spasm.. DISCHARGE INSTRUCTIONS: Followup appointment in days with . MEDICATIONS AT DISCHARGE: Protonix 40 Q am 30 days Synthroid/levothyroxine 50 micrograms PO daily Continue statin and hypertensive medication as before Aspirin 81 mg PO daily DIET INSTRUCTIONS: Patient needs to start on a diet and also an exercise program. HOSPITAL COURSE: Patient was hospitalized with chest pain which was atypical. She said she had a funny feeling in her chest. She had some reflux symptoms lately. Patient's symptoms were nonexertional because of strong family history of heart disease and multiple risk factors for cardiac disease and abnormal EKG, patient was hospitalized. Her cardiac markers were negative. EKG unchanged. Stress test STT wave changes were difficult to read because of baseline abnormal EKG but patient did not have any chest discomfort or chest pain. Blood pressure response was appropriate and no arrhythmias were noted. Patient's LV contractility at rest and post exercise were normal. Negative cardiac markers. Unchanged EKG. Negative stress echo. Patient will be discharged home. She was also noted to be mildly hypothyroid and was put on Levothyroxine. She was educated about coronary artery disease and risk factors and how to modify them. SPECIFIC ORDERS: Patient to come back in 5-7 days Condition at time of discharge: Stable TIME SPENT: More than 60 minutes. [facility]
--- NOTE | 2022-11-17 14:34 | PN ---
11/14/22 LEVEL 5 11/15/22 EXTENSIVE 11/16/22 DISCHARGE MTDD
--- NOTE | 2022-11-18 07:40 | ECHOSTRESS ---
Date of Exam: 11/15/2022 Ordering Physician: DR. FARHANA NOEL Reason for Echo: CHEST PAIN, HTN, STRESS TEST--INCONCLUSIVE M-Mode Normal Adult Results LV Dimensions Normal Adult Results AoV Opening excursions >1.6 LVEDD-base- 3.5-5.8 Ao root dimensions 2.0-3.7 LVESD-base- 3.1-4.6 L. Atrium dimensions 1.9-3.8 Post. Wall thickness 0.8-1.1 IV septum (thickness) 0.7-1.2 Post. Wall excursion 0.72-1.3 Septal motion Systolic motion R. Ventricular cavity 1.5-2.0 LVEF 60% Paradoxical septal wall motion 2-D: NORMAL LEFT VENTRICLE CONTRACTILITY--RESTING AND POST EXERCISE M-MODE: MV: AV: TV: PV: CHAMBER SIZE: WALL MOTION: NORMAL LEFT VENTRICLE CONTRACTILITY--RESTING AND POST EXERCISE PERICARDIUM: INTERPRETATION: 1. NORMAL LEFT VENTRICLE CONTRACTILITY--RESTING AND POST EXERCISE MTDD
--- NOTE | 2022-11-18 07:50 | STRESSECHO ---
Date of Test: 11/15/2022 Ordering Physician: DR. FARHANA NOEL Occupation: HOMEMAKER Reason for Exam: CHEST PAIN, SOA Smoking History: NONE Height: 68" Weight: 197 LBS Current Medications: NEBIVOLOL, PANTOPRAZOLE, ROSUVASTATIN, ALPRAZOLAM, Resting EKG: SINUS RHYTHM/ NON SPECIFIC ST- T WAVE CHANGES Target Heart Rate: 140/165 S-T SEGMENT STAGE MPH/GRADE HEART RATE BPM BLOOD PRESSURE MMHG RHYTHM +/- ELEVATION DEPRESSION SYMPTOMS AT REST 70 BPM 144/84 MMHG SR X NONE 1 1.7/10% 110 BPM 140/90 MMHG SR X NONE 2 2.5/12% 3 3.4/14% 4 4.2/16% 5 5.0/18% Immediately After 133 BPM SR X MD STOPPED TEST Minutes Post Exercise 1" 90 BPM 162/84 MMHG SR X NONE Minutes Post Exercise 5" 7" 87 BPM 84 BPM 132/88 MMHG SR SR X X NONE NONE DURATION OF EXERCISE: 4:43 MAXIMUM HEART RATE REACHED: 133 BPM REASON FOR TERMINATION: MD STOPPED TEST 98% OXYGEN SATURATION WITH EXERCISE ON ROOM AIR METS 7.0 INTERPRETATION: 1. NONDIAGNOSTIC PATIENT HAS BASELINE ABNORMAL ST-T WAVE CHANGE 2. NO CHEST PAIN OR DISCOMFORT 3. BLOOD PRESSURE RESPONSE: NORMAL 4. NO ARRHYTHMIAS LEFT VENTRICLE CONTRACTILITY NORMAL, RESTING AND POST EXERCISE LOW PROBABILITY OF CORONARY INSUFFICIENCY MTDD
--- NOTE | 2022-11-18 07:53 | ECHO2D ---
Date of Exam: 11/15/2022 Ordering Physician: DR. FARHANA NOEL Room #: [id number] Reason for Echo: CHEST PAIN, HTN, DYSLIPIDEMIA M-Mode Normal Adult Results LV Dimensions Normal Adult Results AoV Opening excursions >1.6 >1.6 LVEDD-base- 3.5-5.8 4.7 Ao root dimensions 2.0-3.7 3.4 LVESD-base- 3.1-4.6 L. Atrium dimensions 1.9-3.8 3.5 Post. Wall thickness 0.8-1.1 1.1 IV septum (thickness) 0.7-1.2 1.0 Post. Wall excursion 0.72-1.3 NORMAL Septal motion NORMAL Systolic motion R. Ventricular cavity 1.5-2.0 NORMAL LVEF 60% 56% Paradoxical septal wall motion NORMAL 2-D : 2-D M Mode Echocardiogram was performed using apical four chamber and left parasternal long and short axis views. Mitral, tricuspid and aortic valves appear to be normal. Contractility of the left ventricle seems to be normal, so is the cavity size. Left atrial cavity size and aortic root appear to be normal. There is no pericardial effusion. There is no thrombus noted in the left ventricle or left atrial cavity. M-MODE: MV: NORMAL AV: NORMAL TV: NORMAL PV: CHAMBER SIZE: NORMAL WALL MOTION: NORMAL PERICARDIUM: NORMAL INTERPRETATION: 1. NORMAL 2 "D" "M" MODE ECHO MTDD
== END 2022-11-16 14:49 | disposition home or self-care (01) ==
LOC: ED 18:45 → MEDSURG A 23:10 → INTOOBSV 23:10 → MEDSURG A 23:30
PROVIDERS: ADMIT Internal Medicine; ATTEND Internal Medicine
DX: I45.10 Unspecified right bundle-branch block; E66.9 Obesity, unspecified; R91.8 Other nonspecific abnormal finding of lung field; R07.89 Other chest pain; Z68.30 Body mass index [BMI] 30.0-30.9, adult; J84.114 Acute interstitial pneumonitis; K21.9 Gastro-esophageal reflux disease without esophagitis; R42 Dizziness and giddiness; E03.9 Hypothyroidism, unspecified; E78.5 Hyperlipidemia, unspecified; Z20.822 Contact with and (suspected) exposure to COVID-19; I10 Essential (primary) hypertension; I65.03 Occlusion and stenosis of bilateral vertebral arteries; I65.23 Occlusion and stenosis of bilateral carotid arteries; R06.02 Shortness of breath